=== PATIENT | female | born 1970 | race African-American/Black ===

== ENCOUNTER 2017-04-17 15:54 | Emergency (ER) | payer MEDICAID ==
--- NOTE | 2017-04-17 17:42 | ED Physician Chart ---
ED Chief Complaint/HPI - Patient Information Date Seen:: 04/17/17 Time Seen:: 16:15 Chief Complaint:: Headaches History of Present Illness:: onset x 3 days of intermittent, throbbing Right sided frontal/parietal H/As with N/V x 3; pt deniies trauma, LOC, ALOC, AMS, decreased activity, visual or gait changes, neck pain, vertigo, paresthesias, weakness, dizziness, C/P, SOB, cough, Abd/flank pain, A/D/C, fever, chills, or urinary s/s; Pt denies ; pt is eating and urinating well; pt last urinated 30 minutes [employer] 9 [employer] 12 [employer]; pt is menopausal Allergies:: Allergies Allergy/AdvReac Type Severity Reaction Status Date / Time ibuprofen [From Motrin] Allergy Verified 04/17/17 16:13 ketorolac [From Toradol] Allergy Verified 04/17/17 16:13 Penicillins [PCN] Allergy Verified 04/17/17 16:11 metoclopramide [From Reglan] AdvReac Verified 04/17/17 16:12 prochlorperazine AdvReac Verified 04/17/17 16:13 [From Compazine] Vitals:: Vital Signs - 8 hr 04/17/17 16:15 Temp 96.2 F HR 113 RR 16 BP 134/88 O2 Sat % 99 Historian:: Patient Review:: Nurse's Note Reviewed ED Review of Systems - Review of Systems General/Constitutional: No fever, No chills, No weight loss, No weakness, No diaphoresis, No edema, No loss of appetite Skin: No skin lesions, No rash, No bruising Head: Headache, No light-headedness Eyes: No loss of vision, No pain, No diplopia ENT: No earache, No nasal drainage, No sore throat, No tinnitus Neck: No neck pain, No swelling, No thyromegaly, No stiffness, No mass noted Cardio Vascular: No chest pain, No palpitations, No PND, No orthopnea, No edema Pulmonary: No SOB, No cough, No sputum, No wheezing GI: Nausea, Vomiting, No diarrhea, No pain, No melena, No hematochezia, No constipation, No hematemesis G/U: No dysuria, No frequency, No hematuria Musculoskeletal: No bone or joint pain, No back pain, No muscle pain Endocrine: No polyuria, No polydipsia Psychiatric: No prior psych history, No depression, No anxiety, No suicidal ideation Hematopoietic: No bruising, No lymphadenopathy Allergic/Immuno: No urticaria, No angioedema Neurological: No syncope, No focal symptoms, No weakness, No paresthesia, No headache, No seizure, No dizziness, No confusion, No vertigo ED Past Medical History - Past Medical History Obtainable: Yes Past Medical History: Other (Migraine Headaches) Family History: HTN Social History: Non Smoker, No Alcohol, No Drug Use, Single Surgical History: None Psychiatricy History: None Medication: Reviewed Family Medical History - Family Member Mother Living Status: Still Living Other Medical History: migraine ED Physical Exam - Physical Examination General/Constitutional: Awake, Well-developed, well-nourished, Alert, No distress, GCS 15, Non-toxic appearing, Ambulatory Head: Atraumatic Eyes: Lids, conjuctiva normal, PERRL, EOMI Skin: Nl inspection, No rash, No skin lesions, No ecchymosis, Well hydrated, No lymphadenopathy ENMT: External ears, nose nl, Nasal exam nl, Lips, teeth, gums nl Neck: Nontender, Full ROM w/o pain, No JVD, No nuchal rigidity, No bruit, No mass, No stridor Respiratory: Nl effort/Exclusion, Clear to Auscultation, No Wheeze/Rhonchi/Rales Cardio Vascular: RRR, No murmur, gallop, rubs, NL S1 S2 GI: No tenderness/rebounding/guarding, No organomegaly, No hernia, Normal BS's, Nondistended, No mass/bruits, No McBurney tenderness : No CVA tenderness Extremities: No tenderness or effusion, Full ROM, normal strength in all extremities, No edema, Normal digits & nails Neuro/Psych: Alert/oriented, DTR's symmetric, Normal sensory exam, Normal motor strength, Judgement/insight normal, Mood normal, Normal gait, No focal deficits Misc: Normal back, No paraspinal tenderness ED Labs/Radiology/EKG Results - Lab Results Results: Laboratory Tests 04/17/17 16:39 POC Ur Test Negative Comments:: UCG: Negative - Radiology Results Comments:: Head CAT Scan: NAD ED Septic Shock - . Is Septic Shock (SBP<90, OR Lactate>4 mmol\L) present?: No - <6hrs of presentation: Vital Signs: Vital Signs - 8 hr 04/17/17 16:15 Temp 96.2 F HR 113 RR 16 BP 134/88 O2 Sat % 99 ED Reassessment (Disposition) - Reassessment Reassessment:: pt tolerated po fluids well in ER Reassessment Condition:: Improved - Diagnosis Diagnosis:: Vascular Cephalgia; Migraine Headaches; Nausea/Vomiting; Gastritis; Headaches - Aftercare/Follow up Instructions Aftercare/Follow-Up Instructions:: Counseled pt regarding lab results/diagnosis & need follow up, Refer to Discharge Instructions, Counseled pt & family regarding lab results/diagnosis & need follow up Notes:: Clear Liquid Diet; Fluids Medication Prescribed:: Rx: Phenergan: one tablet po tid prn N/V (#10); Tylenol #3: one tablet po tid prn headaches (#10); Take medications as prescribed - Patient Disposition Discharge/Transfer:: Home Condition at Disposition:: Stable, Improved (RTER prn if existing s/s reoccur and/or get worse and/or any other new s/s occur; ACIs given for all above Dx; X- Rays Instructions; Refer to Neurologist/Civil Service Worker SHANNON; F/U with PMD in one day or prn; RTER prn if concerned)
--- NOTE | 2017-04-18 08:09 | Diagnostic Imaging Report ---
Head CT without intravenous contrast Indication: Headache Comparison: None Technique: Axial images were obtained from the vertex to the skull base without IV contrast. Coronal reconstructions were made. Total DLP: 596, [id number] FINDINGS: Images of the brain obtained without contrast demonstrate no acute hemorrhage. No mass lesions identified. The ventricles and basal cisterns are patent. The walker-white matter differentiation is preserved. There is no mass effect or midline shift. No skull fractures identified. No soft tissue swelling. The paranasal sinuses are clear. IMPRESSION: No acute intracranial abnormality.
== END 2017-04-17 17:45 | disposition home or self-care (01) ==
LOC: ER 15:54
DX: G43.909 Migraine, unspecified, not intractable, without status migrainosus (principal); G44.1 Vascular headache, not elsewhere classified; R11.2 Nausea with vomiting, unspecified; K29.70 Gastritis, unspecified, without bleeding
CPT/HCPCS: 70450-TC; 81025-TC; Z7502